=== PATIENT | male | born 1945 | race Caucasian/White ===

== ENCOUNTER → 2018-03-19 11:51 | Outpatient (CLI) | payer OTHER, SELFPAY ==
--- NOTE | 2018-03-19 | DI.ECHO.S_ITS ---
[facility] : : [address] : : : : [id number] : : : : Phone: [phone] Echocardiogram Report + + :Name: AKHIL HOLLINGSWORTH Study Date: 03/19/2018 Height: 68 in : :[facility] Weight: 169 lb : : Gender: Male BSA: 1.9 m2 : :: 1945 Age: 73 yrs BP: 136/78 mmHg: :Reason For Study: Cardiomyopathy, Hypertrophic : : Performed By: Batsheva Arnett : :Referring: SHRUTHI CHOE : + + Interpretation Summary Left ventricular size is at the upper limits of normal. Distal posterolateral hypokinesis appears to be new. Inferior wall not well seen. The ejection fraction is estimated to be 35-40%. Compared to the prior exam, the left ventricular function is reduced. Previois 45 +/- 5% The right ventricle is grossly normal size. Right ventricular systolic function is at the lower limits of normal. There is mild to moderate mitral regurgitation. There has been no significant change since the previous study. There is mild tricuspid regurgitation. Compared to the prior echo exam, there has been no change in TR severity. The right ventricular systolic pressure is estimated to be at least 55 mmHg based on an estimated right atrial pressure of 3 mm Hg. Compared to the prior echo exam, there has been no change in the severity of pulmonary hypertension. Procedure: A two-dimensional transthoracic echocardiogram with color flow and Doppler was performed. The study quality was technically adequate. Comparison is made with the echocardiogram of 03-02-15. The heart rate ranged between 75-77 bpm during the study. The patient was in normal sinus rhythm during the exam. Left Ventricle: Left ventricular wall thickness is mildly increased. Left ventricular size is at the upper limits of normal. There is no thrombus. The ejection fraction is estimated to be 35-40%. Compared to the prior exam, the left ventricular function is reduced. There is septal wall severe hypokinesis. Distal posterolateral hypokinesis appears to be new. Inferior wall not well seen. MV E/A: 0.77 Med Peak E' Ruslan: 2.5 cm/sec E/E' med: 22.7. Right Ventricle: The right ventricle is grossly normal size. Right ventricular systolic function is at the lower limits of normal. Atria: The left atrium is severely dilated. The left atrium has remained unchanged in size since the prior echo exam. The right atrium is mildly dilated. The interatrial septum is intact with no evidence for an atrial septal defect. Mitral Valve: There is mild mitral annular calcification. The mitral valve leaflets are slightly calcified. No systolic anterior motion of the mitral valve. There is mild to moderate mitral regurgitation. There has been no significant change since the previous study. Aortic Valve: The aortic valve is trileaflet. The aortic valve opens well. There is no aortic valve stenosis. No aortic regurgitation is present. Tricuspid Valve: The tricuspid valve is normal. There is mild tricuspid regurgitation. The right ventricular systolic pressure is estimated to be at least 55 mmHg based on an estimated right atrial pressure of 3 mm Hg. Compared to the prior echo exam, there has been no change in TR severity. Compared to the prior echo exam, there has been no change in the severity of pulmonary hypertension. Pulmonic Valve: The pulmonic valve is not well seen, but is grossly normal. There is trace pulmonic regurgitation. Great Vessels: The aortic root is normal size. The ascending aorta is mildly enlarged. The aortic arch is at the upper limits of normal in size. The IVC is of normal diameter and collapses greater than 50% with a sniff. This suggests a low right atrial pressure of 3 mm Hg. Pericardium/ Pleura There is no pericardial effusion. There is no pleural effusion. MMode/2D Measurements & Calculations LVIDd: 5.6 cm Ao root diam: 3.3 cm LVIDs: 4.9 cm Aortic Jxn: 2.9 cm FS: 12.6 % asc Aorta Diam: 3.8 cm EPSS: 0.62 cm Ao Arch Diam (Prox Trans): 3.0 cm IVSd: 1.2 cm LVPWd: 1.0 cm LV mena. diameter/BSA (cm/m^2): 2.9 LV sys. diameter/BSA (cm/m^2): 2.6 LA dimension: 5.4 cm RA long axis: 5.6 cm LA A2 area: 32.4 cm2 RA area: 21.5 cm2 LA A4 area: 38.3 cm2 RA vol: 70.5 ml LA length (vol): 7.1 cm RA : 37.1 ml/m2 LA vol: 148.0 ml IVC diam: 1.3 cm LA vol index: 77.8 ml/m2 RVDd major: 5.1 cm RVD1 (basal): 4.0 cm RVD2 (mid): 3.7 cm Doppler Measurements & Calculations Ao V2 max: 117.3 cm/sec MV E max ruslan: 57.3 cm/sec Ao V2 mean: 69.9 cm/sec MV A max ruslan: 74.9 cm/sec Ao max P.5 mmHg MV E/A: 0.77 Ao mean P.4 mmHg Med Peak E' Ruslan: 2.5 cm/sec Ao V2 VTI: 20.2 cm E/E' med: 22.7 Lat Peak E' Ruslan: 6.7 cm/sec E/E' lat: 8.5 E/e' average: 15.6 MV dec time: 0.25 sec MV P1/2t: 72.4 msec MR ERO: 0.07 cm2 TR max ruslan: 360.9 cm/sec MV P1/2t max ruslan: 57.9 cm/sec TR max P.1 mmHg MVA(P1/2t): 3.0 cm2 PA V2 max: 85.6 cm/sec PA V2 mean: 58.1 cm/sec PA mean P.6 mmHg PA Accel Time: 0.09 sec MR flow rate: 44.3 cm3/sec MR PISA radius: 0.43 cm Reading Physician:JOANA
--- NOTE | 2018-03-19 | DI.US.S_ITS ---
PROCEDURE: US CAROTID DOPPLER BI INDICATIONS: NEAR SYNCOPE TECHNIQUE: Color and pulse Doppler interrogation was performed of both carotid systems, with image documentation and velocity measurements. COMPARISON: [facility], , CAROTID ARTERY DOPPLER BILAT, 07/06/2012, 11:17. FINDINGS: Stenosis calculations are based on SRU (Society of Radiologists in Ultrasound) criteria. Right side: Brachial blood pressure: 148/85 mm Hg. Common carotid artery peak systolic velocity: 86 cm/sec. Internal carotid artery peak systolic velocity: 67 cm/sec. Internal carotid artery end diastolic velocity: 19 cm/sec. External carotid artery peak systolic velocity: 98 cm/sec. ICA/CCA peak systolic ratio: 1.3. Paul scale imaging description: Mild scattered plaque. Percent internal carotid artery stenosis: Less than 50%. Vertebral artery: Flow direction is antegrade. Left side: Brachial blood pressure: 147/80 mm Hg. Common carotid artery peak systolic velocity: 101 cm/sec. Internal carotid artery peak systolic velocity: 126 cm/sec. Internal carotid artery end diastolic velocity: 33 cm/sec. External carotid artery peak systolic velocity: 94 cm/sec. ICA/CCA peak systolic ratio: 1.2. Paul scale imaging description: Mild scattered plaque. Percent internal carotid artery stenosis: Less than 50%. Vertebral artery: Flow direction is antegrade. IMPRESSION: Stable less than 50% bilateral internal carotid artery stenosis. Dictated by: Amarjit Adkins [facility] Interpreted: Gnozalez Pérez MD on 03/19/2018 at 13:11 Approved by: Gonzalez Pérez M.D. on 03/20/2018 at 10:49
--- NOTE | 2018-03-19 14:43 | PM.TREADMILL ---
Cardiac Stress Test Report Referral & Results Date Patient Seen: 03/19/18 Requesting provider: Delisa Seaman Rest ECG: Left bundle branch block Procedure Note: After both written and verbal informed consent the patient had an IV started by the diagnostic imaging RN, and then was hooked up to the treadmill monitoring system. The Lexiscan material, and then the Cardiolite tracer, were administered sequentially. An additional 3 min was spent monitoring the patient while supine on the gurney.The patient had a normal response to all infused materials. Impression: Normal response to infuse materials as above Perfusion imaging to be reported separately Please note: Actual ECG tracings can be found in the PACS system.
--- NOTE | 2018-03-26 09:56 | DI.NM.S_ITS ---
DATE OF SERVICE: 03/19/2018 ORDERING PROVIDER: Delisa Seaman MD PROCEDURE: Pharmacologic stress and rest myocardial perfusion imaging with gating to assess ejection fraction and regional wall motion. 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 PHARMACOLOGIC STRESS: Pharmacologic stress was pursued because of the patient's incomplete left bundle branch block. Given this, 0.4 mg of regadenoson was infused with a normal hemodynamic response. The patient had no chest discomfort. The resting ECG shows a borderline LBBB with associated ST segment abnormalities. There were no appreciable changes with stress or arrhythmias seen. Per protocol, 26.6 mCi of technetium-99 Myoview was injected and the patient was imaged 15 minutes later using a gated SPECT acquisition protocol. The patient returned the following day and was reinjected with an additional 25.5 mCi of technetium-99 Myoview and was imaged 30 minutes later, again using a gated SPECT protocol. FINDINGS: 1. Raw data: There is fair myocardial tracer uptake. The lung/heart ratio is at the upper limits of normal at 0.41. The TID ratio is normal at 1.04. 2. Quantitated gated SPECT: Post-stress ejection fraction is estimated at 42% with significant hypokinesis in the mid and distal anterior wall, extending out to the apex. The distal inferior wall also appears to be mildly hypokinetic. The resting ejection fraction is 41% with an identical contraction pattern. Left ventricular volumes are mildly increased with a resting end-diastolic volume of 144 mL. 3. Myocardial perfusion imaging: There is near absent perfusion in the majority of the medial portion of the anterior wall and entire intraventricular septum, although sparing the very distal apex. There are no other perfusion abnormalities. This perfusion pattern is unchanged on the prone images. The resting images likewise show an identical perfusion pattern without any areas of improvement. CONCLUSION: 1. Abnormal myocardial perfusion study. 2. Moderately-large, severe fixed perfusion defect involving the medial portion of the anterior wall and the entirety of the intraventricular septum, consistent with transmural infarction but no significant myocardial ischemia. 3. Moderately reduced left ventricular systolic function with hypokinesis of the mid and distal anterior wall extending to the apex and the distal inferior wall with mildly increased left ventricular volumes. There is no change between stress compared to rest. The lung/heart ratio is at the upper limits of normal at 0.41. 4. No angina with pharmacologic stress. There were no arrhythmias but baseline ST segment abnormalities preclude any ST segment analysis. Ramón Merritt - JOHNY/richar/rosa m doc#: [id number]/job#: [id number] dd: 03/20/2018 12:34:00 dt: 03/20/2018 15:00:00 DICTATING MD/COPIES TO: Cristiano Santana MD ; Delisa Seaman MD ; Laura Shultz, DO COPIES MNE: CARLOS ENRIQUE MEREDITH ; [facility]
== END ==
PROVIDERS: Visit Provider Internal Medicine Cardiovascular Disease
DX: I42.2 Other hypertrophic cardiomyopathy (principal); I08.1 Rheumatic disorders of both mitral and tricuspid valves; I44.7 Left bundle-branch block, unspecified; I65.23 Occlusion and stenosis of bilateral carotid arteries; R94.39 Abnormal result of other cardiovascular function study; R55 Syncope and collapse; Z95.1 Presence of aortocoronary bypass graft
CPT/HCPCS: 78452; 93016; 93017; 93018; 93306; 93880; A9502; J2785

== ENCOUNTER 2018-03-20 13:24 | Emergency (ER) | payer MEDICARE, SELFPAY ==
[2018-03-20 13:46] VITALS: BP 149/76; PULSE 71; RESP 16; TEMP 36.7; O2SAT 100; BMI 23.6
--- NOTE | 2018-03-20 14:02 | DI.RAD.S_ITS ---
PROCEDURE: XR KNEE LT 3V INDICATIONS: left knee swelling, pain TECHNIQUE: 3 views of the knee were acquired. COMPARISON: None. FINDINGS: Bones: No fractures or dislocations. Chondrocalcinosis projects in the medial and lateral compartments. Mild narrowing of the medial joint space. Diffuse degenerative spurring. No suspicious bony lesions. Soft tissues: Moderate joint effusion. No suspicious soft tissue calcifications. Scattered vascular calcifications. IMPRESSION: Mild left knee degeneration. Moderate joint effusion. No fracture. If the patient's pain or other symptoms persist, consider further evaluation with MRI Chondrocalcinosis. Dictated by: Michel Apodaca M.D. on 03/20/2018 at 14:36 Approved by: Michel Apodaca M.D. on 03/20/2018 at 14:37
--- NOTE | 2018-03-20 14:04 | ED.EXTPRO ---
HPI - Extremity Problem General Chief complaint: Extremity Problem,Nontraumatic Stated complaint: Left Knee Pain Time Seen by Provider: 03/20/18 13:48 Source: patient and family Mode of arrival: ambulatory Limitations: no limitations History of Present Illness HPI Narrative: This is a 73-year-old male who comes to the emergency department with complaint of left knee swelling and pain. Patient states it has been 2 or 3 days of symptoms. He does not remember having any trauma, he has not walked any long distance he has not had any other new injuries. Patient has not had similar symptoms in the past of note he had a chemical stress test yesterday. Patient has not had any fevers, he is not having any warmth or erythema of the knee just swelling and pain. The swelling is localized just to the knee. He can bend and move it but weight-bearing is uncomfortable. He has not had similar symptoms in the past. He has had a history of gout but not in his knee. He has not had a joint replacement. He has never had bacteremia that he is aware of or septic joints in the past. He has not had any chest pain, no shortness of breath, no nausea or vomiting no GI or urinary symptoms. No other new medication changes. No numbness tingling or weakness in his extremities Related Data Home Medications Medication Instructions Recorded Confirmed CoQ-10 1 cap PO DAILY 03/20/18 03/20/18 aspirin 81 mg tablet,delayed 81 mg PO DAILY 03/20/18 03/20/18 release atenolol 50 mg tablet 50 mg PO DAILY 03/20/18 03/20/18 atorvastatin 40 mg tablet 40 mg PO QPM 03/20/18 03/20/18 losartan 25 mg tablet 25 mg PO DAILY 03/20/18 03/20/18 naproxen sodium [Aleve] 220 mg PO DAILY PRN 03/20/18 03/20/18 Previous Rx's Medication Instructions Recorded colchicine 0.6 mg PO DAILY #10 cap 03/20/18 hydrocodone-acetaminophen [Wales] 1 tab PO Q4-6H PRN #14 tab 03/20/18 Allergies Allergy/AdvReac Type Severity Reaction Status Date / Time No Known Drug Allergies Allergy Verified 03/20/18 13:46 Review of Systems Review of Systems All systems reviewed & are unremarkable except as noted in HPI and below Constitutional Denies chills and Denies fever(s) Cardiovascular Denies chest pain, Denies syncope, Denies dyspnea and Denies dyspnea on exertion Respiratory Denies chest congestion, Denies cough, Denies dyspnea and Denies dyspnea on exertion Gastrointestinal Gastrointestinal: Denies abdominal pain, Denies change in bowel habits, Denies diarrhea, Denies nausea and Denies vomiting Genitourinary Denies difficulty urinating Musculoskeletal Reports as per HPI, Reports arthralgias, Reports joint swelling, Denies limited range of motion, Denies muscle weakness, Denies numbness and Denies tingling Integumentary/Breasts Denies erythema, Denies rash, Denies unusual bruising and Denies other (pallor/cyanosis) Neurologic Denies syncope, Denies numbness and Denies tingling [facility] Medical History Dyslipidemia (Acute) Gout (Acute) Hypertension (Acute) Hypertrophic cardiomyopathy (Acute) Social History Smoking Status: Former smoker Exam Narrative Exam Narrative: GENERAL: Alert and oriented x three, well-nourished, well-appearing male in mild distress. HEENT: Head normocephalic, atraumatic, EOMI, pupils reactive, face symmetric, moist mucous membranes NECK: Supple, full range of motion CARDIOVASCULAR: Regular rate and rhythm without murmurs, rubs or gallops. RESPIRATORY: Breath sounds equal bilaterally, no wheezes rales or rhonchi. ABDOMEN: Soft, nontender. Normoactive bowel sounds all 4 quadrants. No guarding or rebound, rigidity, no mass EXTREMITIES: Normal range of motion, no clubbing. Patient has swelling of the left knee he has no tenderness to palpation. There is no warmth or erythema to the knee itself. Patient has full range of motion, no joint laxity with examination. No ballotable effusion. Patient has normal sensation throughout the legs, 5/5 muscle strength, 2+ pulses bilateral lower extremities.. Neurovascularly intact NEUROLOGICAL: Cranial nerves II through XII grossly intact. Moving all extremities SKIN: Warm, dry, no petechiae, no rashes or lesions. Initial Vital Signs Initial Vital Signs: Vital Signs Temperature 98.0 F 03/20/18 13:46 Pulse Rate 71 03/20/18 13:46 Respiratory Rate 16 03/20/18 13:46 Blood Pressure 149/76 H 03/20/18 13:46 Pulse Oximetry 100 03/20/18 13:46 Course Orders Ordered: ED Orders 03/20/18 14:02 XR knee LT 3V Stat 03/20/18 14:23 C-Reactive Protein Quant Stat Complete Blood Count AUTO DIFF Stat Erythrocyte Sedimentation Rate Stat Uric Acid Stat 03/20/18 16:49 Cell Count w Diff Body Fluid Stat Crystals Body Fluid Stat 03/20/18 17:00 Body Fluid Culture Stat Discontinued Medications Acetaminophen (Tylenol) 975 mg PO NOW ONE Stop: 03/20/18 14:02 Last Admin: 03/20/18 14:22 Dose: 975 mg Colchicine (Colcrys) 0.6 mg PO NOW ONE Stop: 03/20/18 18:21 Colchicine (Colcrys) 1.2 mg PO NOW ONE Stop: 03/20/18 18:21 Vital Signs - 8 hr 03/20/18 13:46 03/20/18 17:45 Temperature 98.0 F Pulse Rate 71 60 Respiratory Rate 16 17 Blood Pressure 149/76 H Blood Pressure [Left Arm] 113/63 Pulse Oximetry 100 98 MDM - Extremity (Nontraumatic) Lab Data Result diagrams: 03/20/18 14:23 Lab Results 03/20/18 03/20/18 03/20/18 Range/Units 14:23 14:23 16:49 WBC 10.8 (4.5-11.0) X10^3/uL RBC 4.35 L (4.5-5.9) X10^6/uL Hgb 14.8 (13.5-17.5) g/dL Hct 42.7 (41-53) % MCV 98.0 (80-100) fL MCH 33.9 (26-34) PG MCHC 34.6 (30-36) % RDW 13.2 (11.6-14.8) % Plt Count 218 (150-400) X10^3/uL Neut % (Auto) 77.2 H (50-75) % Lymph % (Auto) 10.0 L (25-40) % [place] % (Auto) 12.3 (3-14) % Eos % (Auto) 0.1 L (2-4) % Baso % (Auto) 0.4 (0-2) % Neut # (Auto) 8300 H (2577-7050) /uL ESR 48 H (0-15) MM/HR Uric Acid 6.1 (3.5-8.5) mg/dL C-Reactive Protein 16.0 H (<1.0) mg/dL Fluid Color Yellow Fluid Appearance Cloudy Fluid RBC 5100 /uL Fld Tot Nucleated Cell 13846 /uL Fluid Polynuclear WBCs 94 % Fluid Mononuclear WBCs 6 % Fluid Eosinophils 0 % Fluid Other Cells 0 % Body Fluid Clot No clots present Imaging Data knee xray: Radiologist's impression: [address] [address] XRay Report Signed Patient: Ramón Merritt MR#: [id number] : 1945 Acct:[id number] Age/Sex: 73 / M Date of Service: 03/20/18 Loc: ED Accession Number: [id number] Procedure: XR knee LT 3V Ordering Provider: Radha Viera D.O. PROCEDURE: XR KNEE LT 3V INDICATIONS: left knee swelling, pain TECHNIQUE: 3 views of the knee were acquired. COMPARISON: None. FINDINGS: Bones: No fractures or dislocations. Chondrocalcinosis projects in the medial and lateral compartments. Mild narrowing of the medial joint space. Diffuse degenerative spurring. No suspicious bony lesions. Soft tissues: Moderate joint effusion. No suspicious soft tissue calcifications. Scattered vascular calcifications. IMPRESSION: Mild left knee degeneration. Moderate joint effusion. No fracture. If the patient's pain or other symptoms persist, consider further evaluation with MRI Chondrocalcinosis. Dictated by: Michel Apodaca M.D. on 03/20/2018 at 14:36 Approved by: Michel Apodaca M.D. on 03/20/2018 at 14:37 [facility] Narrative Medical decision making narrative: Patient does have elevated C-reactive protein and ESR, his white count is normal. He has been afebrile. He has a history of gout but his uric acid is in normal range although this does not rule out gout. Patient does not have any clinical signs of septic arthritis other than swelling and some pain his x-ray shows moderate effusion but no fracture. Discharge Plan Departure Patient Disposition: Home Clinical Impression: Gout Instructions: DI for Gout Activity Restrictions/Additional Instructions: Follow-up with your primary care provider in the next 3-5 days for recheck. Call for an appointment. Take colchicine 1 tablet daily for symptoms. You may continue naproxen sodium for pain. You may also take Wales 1-2 tablets every 6 hr as needed for breakthrough pain. Return to the emergency department fevers, increasing swelling, redness, signs of infection, rapidly worsening pain, new numbness, tingling or other concerning signs or symptoms. Prescriptions: New colchicine 0.6 mg capsule 0.6 mg PO DAILY Qty: 10 RF: 0 hydrocodone-acetaminophen [Wales] 5-325 mg tablet 1 tab PO Q4-6H PRN (Reason: pain) Qty: 14 RF: 0 No Action atorvastatin 40 mg tablet 40 mg PO QPM RF: 0 aspirin [Adult Low Dose Aspirin] 81 mg tablet,delayed release (DR/EC) 81 mg PO DAILY RF: 0 losartan 25 mg tablet 25 mg PO DAILY RF: 0 atenolol 50 mg tablet 50 mg PO DAILY RF: 0 naproxen sodium [Aleve] 220 mg Tablet 220 mg PO DAILY PRN (Reason: pain) RF: 0 CoQ-10 1 cap PO DAILY RF: 0
[2018-03-20] MEDS: ACETAMINOPHEN 325 MG TABLET 975 MG PO (14:22)
[2018-03-20 14:31] LABS: Add Manual Diff / Slide Review NO; Basophils Percent Auto 0.4 % (0-2); Eosinophils Percent Auto 0.1 % (2-4); Hematocrit 42.7 % (41-53); Hemoglobin 14.8 g/dL (13.5-17.5); Mean Corpuscular HGB Conc 34.6 % (30-36); Mean Corpuscular Hemoglobin 33.9 PG (26-34); Monocytes Percent Auto 12.3 % (3-14); Neutrophils Absolute Auto 8300 /uL (1500-7000); Neutrophils Percent Auto 77.2 % (50-75); Platelet Count 218 X10^3/uL (150-400); Red Blood Cell Count 4.35 X10^6/uL (4.5-5.9); Red Cell Distribution Width 13.2 % (11.6-14.8); White Blood Cell Count 10.8 X10^3/uL (4.5-11.0)
[2018-03-20 14:44] LABS: Uric Acid 6.1 mg/dL (3.5-8.5)
[2018-03-20 15:03] LABS: Erythrocyte Sedimentation Rate 48 MM/HR (0-15)
[2018-03-20 17:15] LABS: Body Fluid Red Blood Cells 5100 /uL; Body Fluid Tot Nucleated Cells 40754 /uL
[2018-03-20 17:16] LABS: Body Fluid Appearance CLOUDY; Body Fluid Clotted? NO CLOTS PRESENT; Body Fluid Color YELLOW
[2018-03-20 17:45] VITALS: BP 113/63; PULSE 60; RESP 17; O2SAT 98
[2018-03-20 17:50] LABS: Eosinophils Body Fluid 0 %; Mononuclear WBC Body Fluid 6 %; Other Cells Body Fluid 0 %
[2018-03-20 17:53] LABS: Polynuclear WBC Body Fluid 94 %
[2018-03-20] MEDS: COLCHICINE 0.6 MG TABLET 1.2 MG PO (18:57)
[2018-03-20 19:34] VITALS: BP 124/62; PULSE 59; RESP 18; O2SAT 99
[2018-03-20 19:37] VITALS: BP 124/62; PULSE 59; RESP 18; O2SAT 99
== END 2018-03-20 19:37 | disposition home or self-care (01) ==
PROVIDERS: Emergency Provider Emergency Medicine
DX: M10.9 Gout, unspecified (principal)
CPT/HCPCS: 73562; 84550; 85025; 85651; 86140; 87070; 87075; 87205; 89051; 89060; 99282; 99284

== ENCOUNTER → 2018-07-03 11:25 | Outpatient (CLI) | payer OTHER, SELFPAY ==
[2018-07-03 13:02] LABS: Alanine Aminotransferase 35 IU/L (21-72); Albumin 4.7 g/dL (3.5-5.0); Albumin Globulin Ratio 2.2 (1.0-2.8); Alkaline Phosphatase 61 U/L (38-126); Aspartate Aminotransferase 29 IU/L (17-59); BUN Creatinine Ratio 13.8 (6-22); Bilirubin Total 1.1 mg/dL (0.2-1.3); Blood Urea Nitrogen 11 mg/dL (9-20); Calcium 9.7 mg/dL (8.4-10.2); Carbon Dioxide 24 mmol/L (22-32); Chloride 101 mmol/L (98-107); Cholesterol 132 mg/dL (140-199); Estimated Glomerular Filt Rate > 60.0 mL/min (>60); Globulin 2.1 g/dL (1.7-4.1); Glucose 77 mg/dL (80-110); HDL Cholesterol 79 mg/dL (40-60); HEMOLYSIS < 15 (0-50); LDL Cholesterol Calculated 36 mg/dL (<100); Potassium 4.6 mmol/L (3.4-5.1); Sodium 136 mmol/L (137-145); Total Protein 6.8 g/dL (6.3-8.2); Triglycerides 84 mg/dL (35-150)
== END ==
PROVIDERS: Visit Provider Internal Medicine Cardiovascular Disease
DX: E78.5 Hyperlipidemia, unspecified (principal); I10 Essential (primary) hypertension
CPT/HCPCS: 36415; 80053; 80061

== ENCOUNTER → 2018-07-27 11:21 | Outpatient (CLI) | payer OTHER, SELFPAY ==
[2018-07-27 12:27] LABS: Blood Urea Nitrogen 18 mg/dL (9-20); Calcium 9.8 mg/dL (8.4-10.2); Carbon Dioxide 21 mmol/L (22-32); Chloride 102 mmol/L (98-107); Estimated Glomerular Filt Rate > 60.0 mL/min (>60); Glucose 86 mg/dL (80-110); HEMOLYSIS < 15 (0-50); Potassium 4.6 mmol/L (3.4-5.1); Sodium 137 mmol/L (137-145)
== END ==
PROVIDERS: Visit Provider Internal Medicine Cardiovascular Disease
DX: I51.9 Heart disease, unspecified (principal)
CPT/HCPCS: 36415; 80048

== ENCOUNTER → 2019-02-18 11:36 | Outpatient (CLI) | payer MEDICARE, SELFPAY ==
--- NOTE | 2019-02-18 11:39 | DI.RAD.S_ITS ---
PROCEDURE: XR WRIST RT MIN 3V INDICATIONS: pain, swelling, r/o bony abnormality TECHNIQUE: 4 views of the wrist were acquired. COMPARISON: [facility], WRIST MINIMUM 3 VIEWS LEFT, 05/02/2016, 10:38. [facility], WRIST MINIMUM 3 VIEWS LEFT, 03/04/2013, 10:56. FINDINGS: Bones: No fractures or dislocations. No suspicious bony lesions. Scaphoid view: Moderate degeneration along the base of the first metacarpal, along the borders of the trapezium and to a lesser degree at the distal scaphoid are noted but no trauma. Soft tissues: No suspicious soft tissue calcifications. IMPRESSION: Degenerative changes without trauma. Dictated by: Cesar Mckeon M.D. on 02/18/2019 at 12:04 Approved by: Cesar Mckeon M.D. on 02/18/2019 at 12:18
== END ==
PROVIDERS: Visit Provider Physician Assistant
DX: M25.531 Pain in right wrist (principal); M25.431 Effusion, right wrist
CPT/HCPCS: 73110

== ENCOUNTER → 2019-09-10 12:57 | Outpatient (CLI) | payer OTHER, MEDICARE, SELFPAY ==
[2019-09-10 14:47] LABS: Alanine Aminotransferase 25 IU/L (<50); Albumin 4.9 g/dL (3.5-5.0); Albumin Globulin Ratio 1.9 (1.0-2.8); Alkaline Phosphatase 74 U/L (38-126); Aspartate Aminotransferase 33 IU/L (17-59); BUN Creatinine Ratio 17.9 (6-22); Bilirubin Total 1.4 mg/dL (0.2-1.3); Blood Urea Nitrogen 15 mg/dL (9-20); Calcium 9.8 mg/dL (8.4-10.2); Carbon Dioxide 23 mmol/L (22-32); Chloride 101 mmol/L (98-107); Cholesterol 130 mg/dL (140-199); Estimated Glomerular Filt Rate > 60.0 mL/min (>60); Globulin 2.6 g/dL (1.7-4.1); Glucose 91 mg/dL (80-110); HDL Cholesterol 68 mg/dL (40-60); HEMOLYSIS < 15 (0-50); LDL Cholesterol Calculated 50 mg/dL (<100); Potassium 4.3 mmol/L (3.4-5.1); Sodium 136 mmol/L (137-145); Total Protein 7.5 g/dL (6.3-8.2); Triglycerides 60 mg/dL (35-150)
== END ==
PROVIDERS: Referring Provider Internal Medicine Cardiovascular Disease; Visit Provider Internal Medicine Cardiovascular Disease
DX: E78.5 Hyperlipidemia, unspecified (principal)
CPT/HCPCS: 36415; 80053; 80061

== ENCOUNTER → 2019-10-09 08:26 | Outpatient (CLI) | payer MEDICARE, SELFPAY ==
[2019-10-10 18:29] LABS: COVID19 Sendout Not Detected (Not Detect)
== END ==
PROVIDERS: Visit Provider Physician Assistant
DX: Z01.812 Encounter for preprocedural laboratory examination (principal)
CPT/HCPCS: 87635

== ENCOUNTER 2019-10-12 10:13 | Day surgery (SDC) | payer MEDICARE, SELFPAY ==
[2019-10-12] MEDS: PROPARACAINE 0.5% OPHTH SOL 2 DROPS EYE-OP (10:39)
[2019-10-12] MEDS: CATARACT EYE COMPOUND (10 DROPS/SYRINGE) 3 DROPS EYE-OP (10:42)
[2019-10-12 10:44] VITALS: BMI 24.3
[2019-10-12 10:51] VITALS: BP 172/91; PULSE 75; RESP 16; TEMP 36.5; O2SAT 99
--- NOTE | 2019-10-12 11:35 | PM.PREOP ---
Pre-operative Note Interval Note History & Physical reviewed/Exam performed by Physician: Yes Changes to H&P: No
--- NOTE | 2019-10-12 11:35 | PM.OP.1 ---
Operative Date/Time/Diagnoses Pre-op diagnosis: Nuclear cataract right eye Procedure & Clinicians Procedure: Cataract Surgery Same procedure as scheduled: Yes Surgeon: Hari Triplett Anesthesia Type: MAC +/- and Sedation Operative Notes Procedure in detail: Patient brought to the operating suite. Tetracaine drops placed in the right eye. Marking instrument was used to salud the vertical and horizontal meridians. Patient was prepped and draped in sterile manner. Wire lid speculum was placed in the eye. Marking instrument was used to salud the 25 degree meridian. Betadine drops were placed on the eye. This was irrigated. Lidocaine jelly was placed on the eye. A paracentesis port was created with a side-port blade. 0.1 mL 1% preservative free lidocaine was injected into the anterior chamber. The anterior chamber was deepened with viscoelastic. 2.6 mm keratome was used to create a temporal clear corneal incision. Cystotome and Utrata forceps were used to create continuous tear capsulorrhexis. Balanced salt solution was used to hydro dissect the nucleus. The phacoemulsification handpiece was inserted and the nucleus was removed using the stop and chop technique. The irrigation aspiration handpiece was inserted and the remaining cortex was removed. Anterior chamber was deepened with viscoelastic. An Kaplan [id number] intraocular lens with a power of 22.5 was injected into the capsular bag. Irrigation aspiration handpiece was inserted and the remaining viscoelastic was removed. The lens was rotated to the 25 degree meridian. Incision was hydrated with balanced salt solution and found to be leak free with pressure with Weck-Cristina sponges. 0.1 mL Vigamox injected anterior chamber. 0.3 mL Kenalog 10 mg was injected subconjunctivally. Lid speculum was removed. The patient left the operating room in excellent condition. Complications: none Post-operative Condition: stable Disposition: same day surgery
[2019-10-12] MEDS: LIDOCAINE JELLY 2% 5 ML 1 APPLIC TOP (12:05)
[2019-10-12] MEDS: PHENYLEPHRINE/LIDOCAINE VIAL (OR) 0.2 ML EYE-OP (12:05)
[2019-10-12] MEDS: CHONDROIDTIN/SOD HYALURONATE 1.05 ML SYRINGE INTRAOCULA (12:05)
[2019-10-12] MEDS: MOXIFLOXACIN INJ 5 MG/ML VIAL EYE-OP (12:05)
[2019-10-12] MEDS: TRIAMCINOLONE 50 MG/5 ML VIAL INJ (12:06)
[2019-10-12] MEDS: TETRACAINE 0.5% OPHTH DROPS 4 ML 2 DROPS EYE-OP (12:06)
[2019-10-12] MEDS: BALANCED SALT IRRIG SOLN NO.2 500 ML, EPINEPHrine 1 MG IRR (12:06)
[2019-10-12 13:48] VITALS: BP 142/84; PULSE 59; RESP 16; TEMP 36.5; O2SAT 96
== END 2019-10-12 12:30 | disposition home or self-care (01) ==
PROVIDERS: PCP Student in an Organized Health Care Education/Training Program; Referring Provider Ophthalmology; Visit Provider Ophthalmology
PROC: (CPT 66984; principal; 2019-10-12 12:15)
DX: H25.11 Age-related nuclear cataract, right eye (principal); Z95.1 Presence of aortocoronary bypass graft; I25.10 Atherosclerotic heart disease of native coronary artery without angina pectoris; I10 Essential (primary) hypertension
CPT/HCPCS: 66984; J0171; J2250; J3301; V2787

== ENCOUNTER → 2019-10-23 11:47 | Outpatient (CLI) | payer MEDICARE, SELFPAY ==
[2019-10-25 06:32] LABS: COVID19 Sendout Not Detected (Not Detect)
== END ==
PROVIDERS: PCP Student in an Organized Health Care Education/Training Program; Visit Provider Physician Assistant
DX: Z01.812 Encounter for preprocedural laboratory examination (principal)
CPT/HCPCS: 87635

== ENCOUNTER 2019-10-26 08:43 | Day surgery (SDC) | payer MEDICARE, SELFPAY ==
[2019-10-26] MEDS: PROPARACAINE 0.5% OPHTH SOL 2 DROPS EYE-OP (10:10)
[2019-10-26] MEDS: CATARACT EYE COMPOUND (10 DROPS/SYRINGE) 3 DROPS EYE-OP (10:15)
[2019-10-26 10:20] VITALS: BP 181/94; PULSE 73; RESP 20; TEMP 36.9; O2SAT 99; BMI 23.6
--- NOTE | 2019-10-26 10:42 | PM.PREOP ---
Pre-operative Note Interval Note History & Physical reviewed/Exam performed by Physician: Yes Changes to H&P: No
--- NOTE | 2019-10-26 10:42 | PM.OP.1 ---
Operative Date/Time/Diagnoses Pre-op diagnosis: Nuclear Cataract Left eye Post-op diagnosis: same Procedure & Clinicians Same procedure as scheduled: Yes Surgeon: Hari Triplett Anesthesia Type: MAC +/- and Sedation Operative Notes Procedure in detail: Patient brought to the operating suite. Tetracaine drops placed in the left eye. Marking instrument was used to salud vertical and horizontal meridians. Patient was prepped and draped in sterile manner. Wire lid speculum was placed in the eye. Marking instrument was used to salud 130 degree meridian. Betadine drops were placed on the eye. This was irrigated. Lidocaine jelly was placed on the eye. A paracentesis port was created with a side-port blade. 0.1 mL 1% preservative free lidocaine was injected into the anterior chamber. The anterior chamber was deepened with viscoelastic. 2.6 mm keratome was used to create a temporal clear corneal incision. Cystotome and Utrata forceps were used to create continuous tear capsulorrhexis. Balanced salt solution was used to hydro dissect the nucleus. The phacoemulsification handpiece was inserted and the nucleus was removed using the stop and chop technique. The irrigation aspiration handpiece was inserted and the remaining cortex was removed. Anterior chamber was deepened with viscoelastic. An Kaplan ICS217 intraocular lens with a power of 23.0 was injected into the capsular bag. Irrigation aspiration handpiece was inserted and the remaining viscoelastic was removed. The lens was rotated to the 130 degree meridian. Incision was hydrated with balanced salt solution and found to be leak free with pressure with Weck-Cristina sponges. 0.1 mL Vigamox injected anterior chamber. 0.3 mL Kenalog 10 mg was injected subconjunctivally. Lid speculum was removed. The patient left the operating room in excellent condition. Complications: none Post-operative Condition: stable Disposition: same day surgery
[2019-10-26] MEDS: MOXIFLOXACIN INJ 5 MG/ML VIAL EYE-OP (11:01)
[2019-10-26] MEDS: PHENYLEPHRINE/LIDOCAINE VIAL (OR) 0.2 ML EYE-OP (11:01)
[2019-10-26] MEDS: CHONDROIDTIN/SOD HYALURONATE 1.05 ML SYRINGE INTRAOCULA (11:02)
[2019-10-26] MEDS: TRIAMCINOLONE 50 MG/5 ML VIAL INJ (11:02)
[2019-10-26] MEDS: TETRACAINE 0.5% OPHTH DROPS 4 ML 2 DROPS EYE-OP (11:02)
[2019-10-26] MEDS: LIDOCAINE JELLY 2% 5 ML 1 APPLIC TOP (11:02)
[2019-10-26] MEDS: BALANCED SALT IRRIG SOLN NO.2 500 ML, EPINEPHrine 1 MG IRR (11:03)
[2019-10-26 11:16] VITALS: BP 159/81; PULSE 65; RESP 16; TEMP 36.4; O2SAT 98
== END 2019-10-26 11:27 | disposition home or self-care (01) ==
PROVIDERS: PCP Student in an Organized Health Care Education/Training Program; Referring Provider Ophthalmology; Visit Provider Ophthalmology
PROC: (CPT 66984; principal; 2019-10-26 10:45)
DX: H25.12 Age-related nuclear cataract, left eye (principal); I25.10 Atherosclerotic heart disease of native coronary artery without angina pectoris; I10 Essential (primary) hypertension
CPT/HCPCS: 66984; J0171; J2250; J3301; V2787

== ENCOUNTER → 2020-09-11 09:16 | Outpatient (CLI) | payer OTHER, SELFPAY ==
[2020-09-11 11:18] LABS: Alanine Aminotransferase 23 IU/L (<50); Albumin 4.3 g/dL (3.5-5.0); Albumin Globulin Ratio 1.9 (1.0-2.8); Alkaline Phosphatase 62 U/L (38-126); Aspartate Aminotransferase 30 IU/L (17-59); BUN Creatinine Ratio 14.1 (6-22); Bilirubin Total 1.2 mg/dL (0.2-1.3); Blood Urea Nitrogen 11 mg/dL (9-20); Calcium 9.7 mg/dL (8.4-10.2); Carbon Dioxide 25 mmol/L (22-32); Chloride 102 mmol/L (98-107); Cholesterol 142 mg/dL (140-199); Estimated Glomerular Filt Rate > 60.0 mL/min (>60); Globulin 2.3 g/dL (1.7-4.1); Glucose 94 mg/dL (80-110); HDL Cholesterol 66 mg/dL (40-60); HEMOLYSIS < 15 (0-50); LDL Cholesterol Calculated 61 mg/dL (<100); Potassium 4.1 mmol/L (3.4-5.1); Sodium 137 mmol/L (137-145); Total Protein 6.6 g/dL (6.3-8.2); Triglycerides 77 mg/dL (35-150)
== END ==
PROVIDERS: PCP Student in an Organized Health Care Education/Training Program; Referring Provider Internal Medicine Cardiovascular Disease; Visit Provider Internal Medicine Cardiovascular Disease
DX: E78.5 Hyperlipidemia, unspecified (principal)
CPT/HCPCS: 36415; 80053; 80061

== ENCOUNTER → 2021-09-14 10:00 | Outpatient (CLI) | payer OTHER, SELFPAY ==
[2021-09-15 01:12] LABS: Cholesterol 133 mg/dL (140-199); HDL Cholesterol 65 mg/dL (40-60); LDL Cholesterol Calculated 56 mg/dL (<100); Triglycerides 59 mg/dL (35-150)
== END ==
PROVIDERS: PCP Student in an Organized Health Care Education/Training Program; Referring Provider Internal Medicine Cardiovascular Disease; Visit Provider Internal Medicine Cardiovascular Disease
DX: I10 Essential (primary) hypertension (principal)
CPT/HCPCS: 36415; 80061

== ENCOUNTER → 2022-04-04 09:31 | Outpatient (CLI) | payer MEDICARE, SELFPAY ==
[2022-04-04 12:34] LABS: BUN Creatinine Ratio 14.4 (6-22); Blood Urea Nitrogen 13 mg/dL (9-20); Calcium 8.9 mg/dL (8.4-10.2); Carbon Dioxide 23 mmol/L (22-32); Chloride 103 mmol/L (98-107); Estimated Glomerular Filt Rate > 60 mL/min (>60); Glucose 103 mg/dL (80-110); HEMOLYSIS < 15 (0-50); Potassium 4.2 mmol/L (3.4-5.1); Sodium 139 mmol/L (137-145)
== END ==
PROVIDERS: PCP Student in an Organized Health Care Education/Training Program; Referring Provider Internal Medicine Cardiovascular Disease; Visit Provider Internal Medicine Cardiovascular Disease
DX: I42.2 Other hypertrophic cardiomyopathy (principal); I10 Essential (primary) hypertension
CPT/HCPCS: 36415; 80048

== ENCOUNTER → 2022-07-15 10:37 | Outpatient (CLI) | payer MEDICARE, SELFPAY ==
[2022-07-15 11:41] LABS: Add Manual Diff / Slide Review NO; Basophils Absolute Auto 100 /uL (0-100); Basophils Percent Auto 0.7 % (0-2); Eosinophils Absolute Auto 0 /uL (0-450); Eosinophils Percent Auto 0.5 % (2-4); Hematocrit 45.8 % (41-53); Hemoglobin 15.1 g/dL (13.5-17.5); Lymphocytes Absolute Auto 1300 /uL (1100-4500); Lymphocytes Percent Auto 16.9 % (25-40); Mean Corpuscular HGB Conc 33.1 % (30-36); Mean Corpuscular Hemoglobin 33.3 PG (26-34); Mean Corpuscular Volume 100.6 fL (80-100); Monocytes Absolute Auto 600 /uL (0-900); Monocytes Percent Auto 7.8 % (3-14); Neutrophils Absolute Auto 5600 /uL (1500-7000); Neutrophils Percent Auto 74.1 % (50-75); Platelet Count 288 X10^3/uL (150-400); Red Blood Cell Count 4.55 X10^6/uL (4.5-5.9); Red Cell Distribution Width 14.4 % (11.6-14.8); White Blood Cell Count 7.5 X10^3/uL (4.5-11.0)
[2022-07-15 12:08] LABS: Alanine Aminotransferase 72 IU/L (<50); Albumin 3.9 g/dL (3.5-5.0); Albumin Globulin Ratio 1.6 (1.0-2.8); Alkaline Phosphatase 112 U/L (38-126); Aspartate Aminotransferase 45 IU/L (17-59); BUN Creatinine Ratio 19.4 (6-22); Bilirubin Total 1.7 mg/dL (0.2-1.3); Blood Urea Nitrogen 18 mg/dL (9-20); Calcium 9.2 mg/dL (8.4-10.2); Carbon Dioxide 19 mmol/L (22-32); Chloride 105 mmol/L (98-107); Cholesterol 100 mg/dL (140-199); Estimated Glomerular Filt Rate > 60 mL/min (>60); Globulin 2.4 g/dL (1.7-4.1); Glucose 112 mg/dL (80-110); HDL Cholesterol 40 mg/dL (40-60); HEMOLYSIS 17 (0-50); LDL Cholesterol Calculated 44 mg/dL (<100); Magnesium 1.6 mg/dL (1.6-2.3); Potassium 4.6 mmol/L (3.4-5.1); Sodium 135 mmol/L (137-145); Total Protein 6.3 g/dL (6.3-8.2); Triglycerides 82 mg/dL (35-150)
== END ==
PROVIDERS: PCP Student in an Organized Health Care Education/Training Program; Referring Provider Internal Medicine Cardiovascular Disease; Visit Provider Internal Medicine Cardiovascular Disease
DX: I48.92 Unspecified atrial flutter (principal); I10 Essential (primary) hypertension; E78.5 Hyperlipidemia, unspecified
CPT/HCPCS: 36415; 80053; 80061; 83735; 84443; 85025

== ENCOUNTER → 2022-07-30 13:05 | Outpatient (CLI) | payer MEDICARE, SELFPAY ==
[2022-07-30 14:22] LABS: Alanine Aminotransferase 26 IU/L (<50); Albumin 4.2 g/dL (3.5-5.0); Albumin Globulin Ratio 1.6 (1.0-2.8); Alkaline Phosphatase 109 U/L (38-126); Aspartate Aminotransferase 25 IU/L (17-59); BUN Creatinine Ratio 15.5 (6-22); Bilirubin Total 1.7 mg/dL (0.2-1.3); Blood Urea Nitrogen 16 mg/dL (9-20); Calcium 9.4 mg/dL (8.4-10.2); Carbon Dioxide 27 mmol/L (22-32); Chloride 99 mmol/L (98-107); Estimated Glomerular Filt Rate > 60 mL/min (>60); Globulin 2.7 g/dL (1.7-4.1); Glucose 91 mg/dL (80-110); HEMOLYSIS < 15 (0-50); Potassium 3.8 mmol/L (3.4-5.1); Sodium 136 mmol/L (137-145); Total Protein 6.9 g/dL (6.3-8.2)
[2022-07-30 15:33] LABS: Free T4, Direct Thyroxine 1.04 ng/dL (0.78-2.19)
[2022-07-30 15:47] LABS: Thyroid Stimulating Hormone 4.52 uIU/mL (0.47-4.68)
== END ==
PROVIDERS: PCP Student in an Organized Health Care Education/Training Program; Referring Provider Nurse Practitioner; Visit Provider Nurse Practitioner
DX: R00.0 Tachycardia, unspecified (principal); E11.9 Type 2 diabetes mellitus without complications; I42.9 Cardiomyopathy, unspecified; I48.92 Unspecified atrial flutter; I10 Essential (primary) hypertension
CPT/HCPCS: 36415; 80053; 84439; 84443

== ENCOUNTER → 2022-08-29 13:51 | Outpatient (CLI) | payer MEDICARE, SELFPAY ==
[2022-08-29 15:29] LABS: Blood Urea Nitrogen 18 mg/dL (9-20); Calcium 9.8 mg/dL (8.4-10.2); Carbon Dioxide 23 mmol/L (22-32); Chloride 103 mmol/L (98-107); Estimated Glomerular Filt Rate > 60 mL/min (>60); Glucose 87 mg/dL (80-110); HEMOLYSIS < 15 (0-50); Potassium 4.5 mmol/L (3.4-5.1); Sodium 137 mmol/L (137-145)
--- NOTE | 2022-09-04 11:35 | PM.PFT.1 ---
Pulmonary Function Test Referral & Results Date Patient Seen: 08/29/22 Results: The spirometry demonstrates an FVC of 2.74 L which is 67% of predicted. The FEV1 was measured at 2.18 L which is 75% of predicted. The FEV1/FVC ratio was 80 which is 110% of predicted. Following the administration of bronchodilator there was a 10% improvement in FEV1 and a 37% improvement in FEF 25-75%. Lung volumes show an SVC of 3.02 L which is 68% of predicted. The diffusing capacity was measured at 16.54 which is 51% of predicted. No hemoglobin value was provided, so no correction for potential anemia could be made, if appropriate. The maximum voluntary ventilation was reduced Interpretation: This study demonstrates probably mild obstructive lung disease based on reduction FEV1 although FEV1/FVC ratio is preserved there is evidence of benefit following bronchodilator as above particularly in small airway flow There is a minimal reduction in lung volumes suggesting the presence of mild restrictive lung disease which may explain some of the abnormality in the FEV1 above There is a more moderate reduction in diffusing capacity suggesting disease at the capillary alveolar level Clinical correlation suggested
== END ==
PROVIDERS: PCP Student in an Organized Health Care Education/Training Program; Referring Provider Internal Medicine Cardiovascular Disease; Visit Provider Internal Medicine Cardiovascular Disease
DX: Z79.899 Other long term (current) drug therapy (principal); I50.22 Chronic systolic (congestive) heart failure; Z87.891 Personal history of nicotine dependence; J98.8 Other specified respiratory disorders
CPT/HCPCS: 36415; 80048; 94060; 94726; 94729

== ENCOUNTER → 2022-09-04 06:49 | Outpatient (CLI) | payer MEDICARE, SELFPAY ==
--- NOTE | 2022-09-04 07:02 | DI.ECHO.S_ITS ---
[place] +---------+ [facility] +---------+ : : [address] : : : : [id number] : : : : Phone: [phone]+ Echocardiogram Report + + :Name: AKHIL HOLLINGSWORTH Study Date: 09/04/2022 Height: 70 in : :[facility] ReadingLocation: Weight: 160 lb : : Gender: Male BSA: 1.9 m2 : :: 1945 Age: 77 yrs BP: 133/86 mmHg: :Reason For Study: SYSTOLIC HEART FAILURE : :Ordering Physician: DAIJA, : :SHRUTHI Performed By: Kelsi Reece : :Referring: SHRUTHI CHOE : + + Interpretation Summary The patient was in sinus bradycardia with heart rates between 47-51 bpm during the exam. The patient had a bundle branch block rhythm during the exam. The left ventricle is mildly dilated. The ejection fraction is estimated to be 20-25%. Except basal to mid inferior lateral wall as well as basal to mid anterolateral wall, rest of the LV segments severely hypokinetic to akinetic. Septum and apex almost akinetic. Patient had KISHA on July 18, 2022 in the setting of A-fib at that time LVEF 10 to 15% with severe global hypokinesis. The right ventricle is normal size. Right ventricular systolic function is moderately reduced. There is moderate to severe mitral regurgitation. Previously moderate MR. No obvious mitral valve prolapse or flail leaflet. Tented mitral leaflets. Mostly central jet. There is moderate tricuspid regurgitation. The right ventricular systolic pressure is estimated to be at least 70 mmHg based on an estimated right atrial pressure of 8 mm Hg. Compared to the prior echo exam, there has been an increase in the severity of pulmonary hypertension. Procedure: Images were not obtained from all of the standard acoustic windows due to the limited scope of the study. The study quality was technically good. Comparison is made with the echocardiogram of 03/19/2018. The patient was in sinus bradycardia with heart rates between 47-51 bpm during the exam. The patient had a bundle branch block rhythm during the exam. Left Ventricle: The left ventricle is mildly dilated. The estimated left ventricular end diastolic volume is 118 ml. No obvious asymmetrical significant septal hypertrophy seen. There is no thrombus. Trabeculae near apex are visualized. No thrombus is observed. A false chord is noted (normal variant). The ejection fraction is estimated to be 20-25%. Except basal to mid inferior lateral wall as well as basal to mid anterolateral wall, rest of the LV segments severely hypokinetic to akinetic. Septum and apex almost akinetic. Patient had KISHA on July 18, 2022 in the setting of A-fib at that time LVEF 10 to 15% with severe global hypokinesis. Right Ventricle: The right ventricle is normal size. Right ventricular systolic function is moderately reduced. Atria: The left atrium is severely dilated. There has been no significant change since the previous study. The right atrium is moderately dilated. Mitral Valve: The mitral valve leaflets are slightly calcified. There is mild mitral annular calcification. The mitral valve leaflets appear mildly thickened, but open well. There is moderate to severe mitral regurgitation. Tricuspid Valve: The tricuspid valve leaflets are thin and pliable. There is moderate tricuspid regurgitation. The right ventricular systolic pressure is estimated to be at least 70 mmHg based on an estimated right atrial pressure of 8 mm Hg. Compared to the prior echo exam, there has been an increase in the severity of pulmonary hypertension. Great Vessels: The IVC is of normal diameter and collapses less than 50% with a sniff. This suggests a right atrial pressure of 8 mm Hg. Pericardium/ Pleura There is no pericardial effusion. There is no pleural effusion. MMode/2D Measurements & Calculations LVIDd: 6.0 cm LA A2 area: 26.7 cm2 LVIDs: 5.1 cm LA A4 area: 30.5 cm2 FS: 15.6 % LA length (vol): 7.0 cm EPSS: 0.73 cm LA vol: 99.4 ml IVSd: 0.91 cm LA vol index: 52.3 ml/m2 LVPWd: 0.84 cm LV mena. diameter/BSA (cm/m^2): 3.2 LV sys. diameter/BSA (cm/m^2): 2.7 RA long axis: 5.7 cm RVD1 (basal): 4.0 cm RA area: 23.4 cm2 RVD2 (mid): 3.1 cm RA vol: 81.0 ml TAPSE: 1.6 cm RA : 42.7 ml/m2 IVC diam: 2.0 cm Doppler Measurements & Calculations MR ERO: 0.45 cm2 TR max rebecca: 394.1 cm/sec TR max P.1 mmHg MR PISA: 5.9 cm2 MR flow rate: 228.9 cm3/sec MR PISA radius: 0.97 cm Reading Physician:11:21 AM
== END ==
PROVIDERS: Referring Provider Internal Medicine Cardiovascular Disease; Visit Provider Internal Medicine Cardiovascular Disease
DX: I50.22 Chronic systolic (congestive) heart failure (principal); I27.20 Pulmonary hypertension, unspecified; R00.1 Bradycardia, unspecified; I08.1 Rheumatic disorders of both mitral and tricuspid valves; I43 Cardiomyopathy in diseases classified elsewhere
CPT/HCPCS: 93307

== ENCOUNTER → 2022-09-23 09:05 | Outpatient (CLI) | payer MEDICARE, SELFPAY ==
[2022-09-23 12:12] LABS: Alanine Aminotransferase 29 IU/L (<50); Albumin 4.1 g/dL (3.5-5.0); Albumin Globulin Ratio 1.8 (1.0-2.8); Alkaline Phosphatase 74 U/L (38-126); Aspartate Aminotransferase 29 IU/L (17-59); BUN Creatinine Ratio 15.7 (6-22); Bilirubin Total 1.8 mg/dL (0.2-1.3); Blood Urea Nitrogen 17 mg/dL (9-20); Calcium 9.4 mg/dL (8.4-10.2); Carbon Dioxide 21 mmol/L (22-32); Chloride 100 mmol/L (98-107); Estimated Glomerular Filt Rate > 60 mL/min (>60); Globulin 2.3 g/dL (1.7-4.1); Glucose 94 mg/dL (80-110); HEMOLYSIS 37 (0-50); Potassium 5.1 mmol/L (3.4-5.1); Sodium 132 mmol/L (137-145); Total Protein 6.4 g/dL (6.3-8.2)
== END ==
PROVIDERS: Referring Provider Internal Medicine Cardiovascular Disease; Visit Provider Internal Medicine Cardiovascular Disease
DX: Z79.899 Other long term (current) drug therapy (principal)
CPT/HCPCS: 36415; 80053

== ENCOUNTER → 2022-10-11 10:06 | Outpatient (CLI) | payer MEDICARE, SELFPAY ==
[2022-10-11 10:53] LABS: BUN Creatinine Ratio 16.8 (6-22); Blood Urea Nitrogen 19 mg/dL (9-20); Calcium 9.6 mg/dL (8.4-10.2); Carbon Dioxide 27 mmol/L (22-32); Chloride 100 mmol/L (98-107); Estimated Glomerular Filt Rate > 60 mL/min (>60); Glucose 100 mg/dL (80-110); HEMOLYSIS 23 (0-50); Potassium 4.3 mmol/L (3.4-5.1); Sodium 136 mmol/L (137-145)
== END ==
PROVIDERS: Referring Provider Internal Medicine Cardiovascular Disease; Visit Provider Internal Medicine Cardiovascular Disease
DX: R00.0 Tachycardia, unspecified (principal); I43 Cardiomyopathy in diseases classified elsewhere
CPT/HCPCS: 36415; 80048

== ENCOUNTER 2022-12-13 07:20 | Emergency (ER) | payer MEDICARE, SELFPAY ==
[2022-12-13 07:22] VITALS: BP 167/77; PULSE 61; RESP 16; TEMP 36.4; O2SAT 97; BMI 21.1
[2022-12-13] MEDS: OXYMETAZOLINE NASAL SPRAY 30 ML 2 SPRAYS NASAL (07:30)
--- NOTE | 2022-12-13 07:37 | ED.GENADULT ---
HPI - General Adult General Chief complaint: Nasal Problem Stated complaint: bloody nose that wont stop Time Seen by Provider: 12/13/22 07:24 Source: patient Mode of arrival: Ambulatory History of Present Illness HPI narrative: 77-year-old male is on Eliquis for atrial fibrillation here for evaluation of a right-sided nosebleed. He has been having issues with bleeding since he is started the Eliquis. His etcher apprentice photoengraving actually dropped him to half a dose. He still occasionally gets nosebleeds and it seems to be on the right side. The current episode started a couple hours ago. He has tried compression at home and also packing his nose with tissues. He reports no GI bleeding. Related Data Home Medications Medication Instructions Recorded Confirmed aspirin 81 mg tablet,delayed 81 mg PO DAILY 03/20/18 10/26/19 release (Adult Low Dose Aspirin) atorvastatin 40 mg tablet 40 mg PO QPM 03/20/18 10/26/19 coenzyme Q10 30 mg capsule (CoQ-10) 30 mg PO DAILY 03/20/18 10/26/19 metoprolol succinate 50 mg 50 mg PO DAILY 04/24/18 10/26/19 tablet,extended release 24 hr losartan 25 mg tablet 25 mg PO BID 07/28/18 10/26/19 acetaminophen 500 mg tablet 1,000 mg PO DAILY 10/12/19 10/26/19 Allergies Allergy/AdvReac Type Severity Reaction Status Date / Time No Known Drug Allergies Allergy Verified 10/23/19 11:45 Review of Systems Constitutional Constitutional: Reports system reviewed and no additional complaints, except as documented ENT Ears, Nose, Mouth, and Throat: Reports system reviewed and no additional complaints, except as documented Integumentary/Breasts Skin/Breast: Reports system reviewed and no additional complaints, except as documented Hematologic/Lymphatic On Anticoagulants: Yes Patient History Medical History Chicken pox (~1945) Chronic back pain Dyslipidemia Gout (~1999) Hearing loss (~1999) Hemorrhoid Hypertension (~1998) Hypertrophic cardiomyopathy (~1998) Measles (~1945) Mumps (~1945) Osteoarthritis (~1999) Osteoporosis (~1999) Pulmonary hypertension (~1998) Shoulder pain (~1999) Vision disorder Surgical History (Updated 09/21/20 @ 10:00 by Richy Rea MD) Anesthesia History of single vessel coronary artery bypass (~01/2005) Family History (Updated 08/17/18 @ 19:09 by Jamilah Pisano) Father Parkinson's disease Grandmother Cancer Grandmother History of heart disease Social History household members: spouse Smoking Status: Former smoker Smoking Status: Former smoker alcohol intake frequency: 0-2 drinks per day Substance Use Type: does not use Exam Initial Vital Signs Initial Vital Signs: Vital Signs Temperature 97.6 F 12/13/22 07:22 Pulse Rate 61 12/13/22 07:22 Respiratory Rate 16 12/13/22 07:22 Blood Pressure 167/77 H 12/13/22 07:22 Pulse Oximetry 97 12/13/22 07:22 Oxygen Delivery Method Room Air 12/13/22 07:22 Const General: cooperative and comfortable HENMT Nose: No epistaxis and other (Friable tissue right anterior nasal septum) Mouth: oral mucosae normal Skin General: no rashes or lesions noted Neuro General: patient alert, patient awake and moves all extremities Course Orders Ordered: Discontinued Medications Oxymetazoline HCl (Oxymetazoline Nasal Finger 30 Ml) 2 sprays NASAL NOW ONE Stop: 12/13/22 07:28 Last Admin: 12/13/22 07:30 Dose: 2 sprays Documented By: BON Vital Signs Vital signs: Vital Signs - 8 hr 12/13/22 07:22 Temperature 97.6 F Pulse Rate 61 Respiratory Rate 16 Blood Pressure 167/77 H Pulse Oximetry 97 Oxygen Delivery Method Room Air Medical Decision Making [facility] Narrative Medical decision making narrative: Patient is on Eliquis. The bleeding is from his right nares. It was only oozing upon arrival. We used Afrin and a nasal clamp and we were able to get the bleeding to stop. I sent him home with the remaining bottle of Afrin in the nasal clamp and instructions for its use if he were to start bleeding again. He was also given information for follow-up with ear nose and throat. He was given return precautions. He expressed understanding and agreement. Discharge Plan Departure Patient Disposition: Home Clinical Impression: Epistaxis Instructions: DI for Nosebleed Activity Restrictions/Additional Instructions: Continue to take all of your medications as directed. Follow the procedure that we discussed if your nose starts to bleed again. Return to the emergency department for new or worsening symptoms. Prescriptions: No Action atorvastatin 40 mg tablet 40 mg PO QPM aspirin [Adult Low Dose Aspirin] 81 mg tablet,delayed release (DR/EC) 81 mg PO DAILY metoprolol succinate 50 mg tablet extended release 24 hr 50 mg PO DAILY Patient Comments: DR CHOE STARTED PT ON THIS MED losartan 25 mg tablet 25 mg PO BID coenzyme Q10 [CoQ-10] 30 mg Capsule 30 mg PO DAILY Rx Instructions: unknown dose acetaminophen 500 mg Tablet 1,000 mg PO DAILY Referrals: Kole Brown MD [Physician] - Miscellaneous,DoctorMD [Primary Care Provider] - Stand Alone Forms: Patient Portal/API
[2022-12-13 08:21] VITALS: BP 132/63; PULSE 50; RESP 18; O2SAT 100
== END 2022-12-13 08:22 | disposition home or self-care (01) ==
PROVIDERS: Emergency Provider Emergency Medicine
DX: R04.0 Epistaxis (principal); Z79.01 Long term (current) use of anticoagulants
CPT/HCPCS: 99282

== ENCOUNTER → 2022-12-25 10:30 | Outpatient (CLI) | payer MEDICARE, SELFPAY ==
[2022-12-25 13:01] LABS: BUN Creatinine Ratio 22.4 (6-22); Blood Urea Nitrogen 24 mg/dL (9-20); Calcium 9.9 mg/dL (8.4-10.2); Carbon Dioxide 20 mmol/L (22-32); Chloride 100 mmol/L (98-107); Estimated Glomerular Filt Rate > 60 mL/min (>60); Glucose 78 mg/dL (80-110); HEMOLYSIS < 15 (0-50); Sodium 132 mmol/L (137-145)
[2022-12-25 13:11] LABS: NT-proBNP (BNP-Adult 18+) 6740 pg/mL (<450)
== END ==
PROVIDERS: Referring Provider Internal Medicine Cardiovascular Disease; Visit Provider Internal Medicine Cardiovascular Disease
DX: I50.22 Chronic systolic (congestive) heart failure (principal)
CPT/HCPCS: 36415; 80048; 83880

== ENCOUNTER → 2023-01-06 11:37 | Outpatient (CLI) | payer MEDICARE, SELFPAY ==
[2023-01-06 12:36] LABS: Alanine Aminotransferase 29 IU/L (<50); Albumin 4.5 g/dL (3.5-5.0); Albumin Globulin Ratio 2.1 (1.0-2.8); Alkaline Phosphatase 78 U/L (38-126); Aspartate Aminotransferase 32 IU/L (17-59); BUN Creatinine Ratio 25.2 (6-22); Bilirubin Total 1.1 mg/dL (0.2-1.3); Blood Urea Nitrogen 26 mg/dL (9-20); Calcium 10.1 mg/dL (8.4-10.2); Carbon Dioxide 21 mmol/L (22-32); Chloride 101 mmol/L (98-107); Estimated Glomerular Filt Rate > 60 mL/min (>60); Globulin 2.1 g/dL (1.7-4.1); Glucose 85 mg/dL (80-110); HEMOLYSIS < 15 (0-50); Potassium 4.9 mmol/L (3.4-5.1); Sodium 133 mmol/L (137-145); Total Protein 6.6 g/dL (6.3-8.2)
== END ==
PROVIDERS: PCP Student in an Organized Health Care Education/Training Program; Referring Provider Internal Medicine Cardiovascular Disease; Visit Provider Internal Medicine Cardiovascular Disease
DX: Z79.899 Other long term (current) drug therapy (principal)
CPT/HCPCS: 36415; 80053; 84443

== ENCOUNTER → 2023-02-28 14:38 | Outpatient (CLI) | payer MEDICARE, SELFPAY ==
[2023-02-28 15:14] LABS: Add Manual Diff / Slide Review NO; Basophils Absolute Auto 0 /uL (0-100); Basophils Percent Auto 0.6 % (0-2); Eosinophils Absolute Auto 100 /uL (0-450); Eosinophils Percent Auto 2.1 % (2-4); Hemoglobin 13.3 g/dL (13.5-17.5); Lymphocytes Absolute Auto 1300 /uL (1100-4500); Lymphocytes Percent Auto 18.8 % (25-40); Mean Corpuscular Hemoglobin 33.5 PG (26-34); Mean Corpuscular Volume 98.4 fL (80-100); Monocytes Absolute Auto 800 /uL (0-900); Monocytes Percent Auto 12.2 % (3-14); Neutrophils Absolute Auto 4500 /uL (1500-7000); Neutrophils Percent Auto 66.3 % (50-75); Platelet Count 235 X10^3/uL (150-400); Red Blood Cell Count 3.96 X10^6/uL (4.5-5.9); Red Cell Distribution Width 15.5 % (11.6-14.8); White Blood Cell Count 6.8 X10^3/uL (4.5-11.0)
[2023-02-28 15:41] LABS: BUN Creatinine Ratio 25.3 (6-22); Blood Urea Nitrogen 23 mg/dL (9-20); Calcium 9.8 mg/dL (8.4-10.2); Carbon Dioxide 22 mmol/L (22-32); Chloride 102 mmol/L (98-107); Estimated Glomerular Filt Rate > 60 mL/min (>60); Glucose 86 mg/dL (80-110); HEMOLYSIS 38 (0-50); Potassium 4.2 mmol/L (3.4-5.1); Sodium 134 mmol/L (137-145)
== END ==
PROVIDERS: Referring Provider Internal Medicine Cardiovascular Disease; Visit Provider Internal Medicine Cardiovascular Disease
DX: I43 Cardiomyopathy in diseases classified elsewhere (principal); R00.0 Tachycardia, unspecified
CPT/HCPCS: 36415; 80048; 85025

== ENCOUNTER → 2023-04-23 10:17 | Outpatient (CLI) | payer MEDICARE, SELFPAY ==
[2023-04-23 11:54] LABS: Add Manual Diff / Slide Review NO; Basophils Absolute Auto 0 /uL (0-100); Basophils Percent Auto 0.5 % (0-2); Eosinophils Absolute Auto 100 /uL (0-450); Eosinophils Percent Auto 1.4 % (2-4); Hematocrit 39.9 % (41-53); Hemoglobin 13.7 g/dL (13.5-17.5); Lymphocytes Absolute Auto 1200 /uL (1100-4500); Mean Corpuscular HGB Conc 34.4 % (30-36); Mean Corpuscular Hemoglobin 34.4 PG (26-34); Mean Corpuscular Volume 99.9 fL (80-100); Monocytes Absolute Auto 700 /uL (0-900); Monocytes Percent Auto 8.6 % (3-14); Neutrophils Absolute Auto 5600 /uL (1500-7000); Neutrophils Percent Auto 73.5 % (50-75); Platelet Count 229 X10^3/uL (150-400); Red Blood Cell Count 3.99 X10^6/uL (4.5-5.9); Red Cell Distribution Width 14.5 % (11.6-14.8); White Blood Cell Count 7.6 X10^3/uL (4.5-11.0)
[2023-04-23 12:08] LABS: BUN Creatinine Ratio 22.2 (6-22); Blood Urea Nitrogen 26 mg/dL (9-20); Calcium 9.8 mg/dL (8.4-10.2); Carbon Dioxide 21 mmol/L (22-32); Chloride 102 mmol/L (98-107); Estimated Glomerular Filt Rate > 60 mL/min (>60); Glucose 97 mg/dL (80-110); HEMOLYSIS < 15 (0-50); Potassium 4.4 mmol/L (3.4-5.1); Sodium 134 mmol/L (137-145)
== END ==
LOC: LAB 10:19
PROVIDERS: Referring Provider Internal Medicine Cardiovascular Disease; Visit Provider Internal Medicine Cardiovascular Disease
DX: I48.3 Typical atrial flutter (principal)
CPT/HCPCS: 36415; 80048; 85025

== ENCOUNTER → 2023-05-30 10:15 | Outpatient (CLI) | payer MEDICARE, SELFPAY ==
--- NOTE | 2023-05-30 10:16 | DI.ECHO.S_ITS ---
[place] +---------+ [facility] +---------+ : : [address] : : : : [id number] : : : : Phone: [phone]---------+ Echocardiogram Report + + :Name: AKHIL HOLLINGSWORTH Study Date: 05/30/2023 Height: 70 in : :[facility] ReadingLocation: Weight: 150 lb : : Gender: Male BSA: 1.8 m2 : :: 1945 Age: 78 yrs BP: 126/67 mmHg: :Reason For Study: HYPERTROPHIC CARDIOMYOPATHY : :Ordering Physician: DARBY, : :VANGIE Shay Performed By: Timmy Delgado : :Referring: VANGIE PASTOR : + + Interpretation Summary The left ventricle is mildly dilated. Left ventricular systolic function is moderately reduced. The ejection fraction is estimated to be 30-35%. There is hypokinesis to akinesis along most LV segments except for lateral, part of anterior, and basal inferior segments. The right ventricle is mild to moderately dilated. There is a pacemaker lead in the right ventricle. Right ventricular systolic function is borderline reduced. The right ventricular systolic pressure is estimated to be at least 48 mmHg based on an estimated right atrial pressure of 8 mm Hg. The left atrium is moderately dilated. The right atrium is moderately dilated. There is moderate mitral regurgitation. There is moderate tricuspid regurgitation. The aortic root is normal size. Procedure: A two-dimensional transthoracic echocardiogram with color flow and Doppler was performed. The study quality was technically adequate. Comparison is made with the echocardiogram of 09/04/2022. The patient was in normal sinus rhythm during the exam. The heart rate ranged between 60-69 bpm during the study. Left Ventricle: The left ventricle is mildly dilated. There is borderline concentric left ventricular hypertrophy. Left ventricular systolic function is moderately reduced. The ejection fraction is estimated to be 30-35%. There is hypokinesis to akinesis along most LV segments except for lateral, part of anterior, and basal inferior segments. Right Ventricle: The right ventricle is mild to moderately dilated. There is a pacemaker lead in the right ventricle. Right ventricular systolic function is borderline reduced. Atria: The left atrium is moderately dilated. The right atrium is moderately dilated. There is a catheter/pacemaker lead seen in the right atrium. Mitral Valve: The mitral valve is normal in structure but abnormal in function. There is no mitral valve stenosis. There is moderate mitral regurgitation. Aortic Valve: The aortic valve is trileaflet. There is no aortic valve stenosis. No aortic regurgitation is present. Tricuspid Valve: The tricuspid valve is normal in structure but is abnormal in function. There is no tricuspid stenosis. The right ventricular systolic pressure is estimated to be at least 48 mmHg based on an estimated right atrial pressure of 8 mm Hg. There is moderate tricuspid regurgitation. Pulmonic Valve: The pulmonic valve is not well visualized. There is no pulmonic valvular stenosis. There is a trace or physiologic amount of pulmonic regurgitation. Great Vessels: The aortic root is normal size. The dimensions of the ascending aorta are normal. The IVC is of normal diameter and collapses less than 50% with a sniff. This suggests a right atrial pressure of 8 mm Hg. Pericardium/ Pleura There is no pericardial effusion. There is no pleural effusion. MMode/2D Measurements & Calculations LVIDd: 6.1 cm LVOT diam: 2.0 cm LVIDs: 5.1 cm Ao root diam: 3.0 cm FS: 15.1 % asc Aorta Diam: 3.5 cm IVSd: 1.2 cm Ao Arch Diam (Prox Trans): 2.5 cm LVPWd: 1.1 cm LV mena. diameter/BSA (cm/m^2): 3.3 LV sys. diameter/BSA (cm/m^2): 2.8 LA A2 area: 19.0 cm2 RA long axis: 4.8 cm LA A4 area: 29.0 cm2 RA area: 20.1 cm2 LA length (vol): 6.4 cm RA vol: 72.2 ml LA vol: 72.9 ml RA : 39.1 ml/m2 LA vol index: 39.5 ml/m2 IVC diam: 1.5 cm RVD1 (basal): 4.6 cm RVD2 (mid): 3.5 cm TAPSE: 2.0 cm Doppler Measurements & Calculations Ao V2 max: 79.0 cm/sec LVOT Max Ruslan: 79.6 cm/sec Ao V2 mean: 59.0 cm/sec LV V1 max P.5 mmHg Ao max P.5 mmHg LV V1 VTI: 17.4 cm Ao mean P.5 mmHg JUSTINA(I,D): 2.8 cm2 Ao V2 VTI: 19.3 cm JUSTINA(V,D): 3.2 cm2 sev ratio: 0.90 JUSTINA indexed to BSA (cm^2/m^2): 1.5 MV E max ruslan: 55.0 cm/sec TR max ruslan: 337.2 cm/sec MV A max ruslan: 44.8 cm/sec TR max P.5 mmHg MV E/A: 1.2 PA V2 max: 77.3 cm/sec Med Peak E' Ruslan: 3.1 cm/sec PA V2 mean: 55.5 cm/sec E/E' med: 17.7 PA mean P.4 mmHg Lat Peak E' Ruslan: 2.7 cm/sec PA pr(Accel): 25.9 mmHg E/E' lat: 20.6 E/e' average: 19.2 MV dec time: 0.28 sec MR ERO: 0.40 cm2 MR PISA: 6.4 cm2 SV(LVOT): 55.0 ml MR flow rate: 234.4 cm3/sec MR PISA radius: 1.0 cm Reading Physician:10:23 PM
== END ==
PROVIDERS: Referring Provider Physician Assistant; Visit Provider Physician Assistant
DX: I42.2 Other hypertrophic cardiomyopathy (principal); I08.1 Rheumatic disorders of both mitral and tricuspid valves; Z95.0 Presence of cardiac pacemaker
CPT/HCPCS: 93306

== ENCOUNTER → 2023-07-03 11:05 | Outpatient (CLI) | payer MEDICARE, SELFPAY ==
[2023-07-03 12:41] LABS: Alanine Aminotransferase 15 IU/L (<50); Albumin 4.3 g/dL (3.5-5.0); Albumin Globulin Ratio 1.7 (1.0-2.8); Alkaline Phosphatase 79 U/L (38-126); Aspartate Aminotransferase 25 IU/L (17-59); Blood Urea Nitrogen 24 mg/dL (9-20); Calcium 9.7 mg/dL (8.4-10.2); Carbon Dioxide 20 mmol/L (22-32); Chloride 107 mmol/L (98-107); Estimated Glomerular Filt Rate > 60 mL/min (>60); Globulin 2.6 g/dL (1.7-4.1); Glucose 91 mg/dL (80-110); HEMOLYSIS < 15 (0-50); Potassium 4.2 mmol/L (3.4-5.1); Sodium 137 mmol/L (137-145); Total Protein 6.9 g/dL (6.3-8.2)
== END ==
PROVIDERS: Referring Provider Internal Medicine Cardiovascular Disease; Visit Provider Internal Medicine Cardiovascular Disease
DX: Z79.899 Other long term (current) drug therapy (principal)
CPT/HCPCS: 36415; 80053; 84443

== ENCOUNTER → 2023-07-18 09:10 | Outpatient (CLI) | payer MEDICARE, SELFPAY ==
[2023-07-18 11:04] LABS: BUN Creatinine Ratio 21.3 (6-22); Blood Urea Nitrogen 26 mg/dL (9-20); Calcium 9.9 mg/dL (8.4-10.2); Carbon Dioxide 20 mmol/L (22-32); Chloride 106 mmol/L (98-107); Cholesterol 163 mg/dL (140-199); Estimated Glomerular Filt Rate 60 mL/min (>60); Glucose 100 mg/dL (80-110); HDL Cholesterol 76 mg/dL (40-60); HEMOLYSIS 16 (0-50); LDL Cholesterol Calculated 75 mg/dL (<100); Potassium 5.2 mmol/L (3.4-5.1); Sodium 135 mmol/L (137-145); Triglycerides 58 mg/dL (35-150)
== END ==
PROVIDERS: Referring Provider Internal Medicine Cardiovascular Disease; Visit Provider Internal Medicine Cardiovascular Disease
DX: I50.22 Chronic systolic (congestive) heart failure (principal); E78.5 Hyperlipidemia, unspecified
CPT/HCPCS: 36415; 80048; 80061

== ENCOUNTER → 2023-08-06 10:13 | Outpatient (CLI) | payer MEDICARE, SELFPAY ==
[2023-08-06 10:55] LABS: BUN Creatinine Ratio 20.2 (6-22); Blood Urea Nitrogen 21 mg/dL (9-20); Calcium 9.7 mg/dL (8.4-10.2); Carbon Dioxide 19 mmol/L (22-32); Chloride 104 mmol/L (98-107); Estimated Glomerular Filt Rate > 60 mL/min (>60); Glucose 92 mg/dL (80-110); HEMOLYSIS < 15 (0-50); Potassium 4.8 mmol/L (3.4-5.1); Sodium 132 mmol/L (137-145)
== END ==
PROVIDERS: Referring Provider Internal Medicine Cardiovascular Disease; Visit Provider Internal Medicine Cardiovascular Disease
DX: I50.22 Chronic systolic (congestive) heart failure (principal)
CPT/HCPCS: 36415; 80048

== ENCOUNTER → 2023-11-07 10:47 | Outpatient (CLI) | payer MEDICARE, SELFPAY ==
[2023-11-07 12:27] LABS: BUN Creatinine Ratio 19.4 (6-22); Blood Urea Nitrogen 20 mg/dL (9-20); Calcium 9.4 mg/dL (8.4-10.2); Carbon Dioxide 16 mmol/L (22-32); Chloride 104 mmol/L (98-107); Estimated Glomerular Filt Rate > 60 mL/min (>60); Glucose 90 mg/dL (80-110); HEMOLYSIS < 15 (0-50); Potassium 4.6 mmol/L (3.4-5.1); Sodium 133 mmol/L (137-145)
== END ==
PROVIDERS: Referring Provider Internal Medicine Cardiovascular Disease; Visit Provider Internal Medicine Cardiovascular Disease
DX: I50.22 Chronic systolic (congestive) heart failure (principal)
CPT/HCPCS: 36415; 80048

== ENCOUNTER → 2023-12-24 10:27 | Outpatient (CLI) | payer MEDICARE, SELFPAY ==
--- NOTE | 2023-12-24 10:28 | DI.US.S_ITS ---
PROCEDURE: US CAROTID DOPPLER BI INDICATIONS: BI CAROTID ARTERY STENOSIS TECHNIQUE: Color and pulse Doppler interrogation was performed of both carotid systems, with image documentation and velocity measurements. COMPARISON: [facility], [place], US CAROTID DOPPLER BI, 03/19/2018, 12:05. FINDINGS: Stenosis calculations are based on SRU (Society of Radiologists in Ultrasound) criteria. Right side: Brachial blood pressure: 115/63 mm Hg. Common carotid artery peak systolic velocity: 82 cm/sec. Internal carotid artery peak systolic velocity: 91 cm/sec. Internal carotid artery end diastolic velocity: 23 cm/sec. External carotid artery peak systolic velocity: 113 cm/sec. ICA/CCA peak systolic ratio: 1.1 . Paul scale imaging description: Mild atherosclerotic plaques Percent internal carotid artery stenosis: Less than 50 percent . Vertebral artery: Flow direction is antegrade. Left side: Brachial blood pressure: 109/56 mm Hg. Common carotid artery peak systolic velocity: 88 cm/sec. Internal carotid artery peak systolic velocity: 149 cm/sec. Internal carotid artery end diastolic velocity: 33 cm/sec. External carotid artery peak systolic velocity: 144 cm/sec. ICA/CCA peak systolic ratio: 1.7 . Paul scale imaging description: Significant atherosclerotic plaques Percent internal carotid artery stenosis: 50-69 percent . Vertebral artery: Flow direction is antegrade. IMPRESSION: Less than 50 percent stenosis of the right internal carotid artery and 50-69 percent stenosis of the left internal carotid artery. Dictated by: Emanuel Vasques M.D. on 12/24/2023 at 15:04 Approved by: Emanuel Vasques M.D. on 12/24/2023 at 15:08
== END ==
PROVIDERS: Referring Provider Internal Medicine Cardiovascular Disease; Visit Provider Internal Medicine Cardiovascular Disease
DX: I65.23 Occlusion and stenosis of bilateral carotid arteries (principal)
CPT/HCPCS: 93880

== ENCOUNTER → 2024-03-17 08:19 | Outpatient (CLI) | payer MEDICARE, SELFPAY ==
[2024-03-17 11:12] LABS: BUN Creatinine Ratio 25.2 (6-22); Blood Urea Nitrogen 28 mg/dL (9-20); Calcium 9.7 mg/dL (8.4-10.2); Carbon Dioxide 19 mmol/L (22-32); Chloride 104 mmol/L (98-107); Cholesterol 158 mg/dL (140-199); Estimated Glomerular Filt Rate > 60 mL/min (>60); Glucose 83 mg/dL (80-110); HDL Cholesterol 58 mg/dL (40-60); HEMOLYSIS 26 (0-50); LDL Cholesterol Calculated 79 mg/dL (<100); Potassium 4.7 mmol/L (3.4-5.1); Sodium 134 mmol/L (137-145); Triglycerides 103 mg/dL (35-150)
== END ==
PROVIDERS: Referring Provider Internal Medicine Cardiovascular Disease; Visit Provider Internal Medicine Cardiovascular Disease
DX: I10 Essential (primary) hypertension (principal)
CPT/HCPCS: 36415; 80048; 80061

== ENCOUNTER → 2024-04-02 13:28 | Outpatient (CLI) | payer MEDICARE, SELFPAY ==
[2024-04-02 14:27] LABS: Blood Urea Nitrogen 26 mg/dL (9-20); Calcium 9.9 mg/dL (8.4-10.2); Carbon Dioxide 19 mmol/L (22-32); Chloride 98 mmol/L (98-107); Estimated Glomerular Filt Rate 58 mL/min (>60); Glucose 89 mg/dL (80-110); HEMOLYSIS < 15 (0-50); Potassium 5.1 mmol/L (3.4-5.1); Sodium 130 mmol/L (137-145)
== END ==
PROVIDERS: Referring Provider Internal Medicine Cardiovascular Disease; Visit Provider Internal Medicine Cardiovascular Disease
DX: I50.22 Chronic systolic (congestive) heart failure (principal)
CPT/HCPCS: 36415; 80048

== ENCOUNTER → 2024-04-20 12:47 | Outpatient (CLI) | payer MEDICARE, SELFPAY ==
[2024-04-20 15:05] LABS: BUN Creatinine Ratio 15.7 (6-22); Blood Urea Nitrogen 16 mg/dL (9-20); Calcium 9.3 mg/dL (8.4-10.2); Carbon Dioxide 19 mmol/L (22-32); Chloride 99 mmol/L (98-107); Estimated Glomerular Filt Rate > 60 mL/min (>60); Glucose 83 mg/dL (80-110); HEMOLYSIS < 15 (0-50); Potassium 4.2 mmol/L (3.4-5.1); Sodium 131 mmol/L (137-145)
== END ==
PROVIDERS: Referring Provider Internal Medicine Cardiovascular Disease; Visit Provider Internal Medicine Cardiovascular Disease
DX: I10 Essential (primary) hypertension (principal)
CPT/HCPCS: 36415; 80048

== ENCOUNTER → 2024-09-15 14:37 | Outpatient (CLI) | payer MEDICARE, SELFPAY ==
--- NOTE | 2024-09-15 14:54 | DI.ECHO.S_ITS ---
[place] +---------+ [facility] : : [address] : : [address] : : [id number] : : Phone: [phone] Echocardiogram Report + + :Name: AKHIL HOLLINGSWORTH Study Date: 09/15/2024 Height: 70 in : :[facility] ReadingLocation: Weight: 157 lb : : Gender: Male BSA: 1.9 m2 : :: 1945 Age: 79 yrs BP: 128/72 mmHg: :Reason For Study: Cardiomyopathy : :Ordering Physician: DAIJA, : :SHRUTHI Performed By: Anson Mascorro : :Referring: SHRUTHI CHOE : + + Interpretation Summary The left ventricle is normal in size. Severely hypokinetic septum and distal inferior wall. There is improvement in distal lateral wall, anterior wall, wall motion abnormalities. Overall LVEF 40 to 45%. Previously 30 to 35%. The right ventricle is mildly dilated. The right ventricular systolic function is normal. Pacemaker lead in the RV. There is mild mitral regurgitation. Compared to the prior echo study, there has been a decrease in the severity of mitral regurgitation. There is mild tricuspid regurgitation. Compared to the prior echo exam, there has been a decrease in TR severity. The right ventricular systolic pressure is estimated to be at least 24 mmHg based on an estimated right atrial pressure of 3 mm Hg. Previously 48 mmHg. Previously moderate MR and moderate TR. Procedure: A two-dimensional transthoracic echocardiogram with color flow and Doppler was performed. The study quality was technically adequate. Comparison is made with the echocardiogram of 05/30/2023. A contrast injection of Definity was performed to improve assessment of LV function. The heart rate ranged between 64-74 bpm during the study. The patient was in normal sinus rhythm during the exam. Left Ventricle: The left ventricle is normal in size. Left ventricular wall thickness is mildly increased. There is no thrombus. The ejection fraction is estimated to be 40-45%. Severely hypokinetic septum and distal inferior wall. There is improvement in distal lateral wall, anterior wall, wall motion abnormalities. Overall LVEF 40 to 45%. Previously 30 to 35%. MV E/A: 0.59 Med Peak E' Ruslan: 3.3 cm/sec E/E' med: 13.7. Right Ventricle: The right ventricle is mildly dilated. There is a pacemaker lead in the right ventricle. The right ventricular systolic function is normal. Atria: The left atrium is severely dilated. There has been no significant change since the previous study. Right atrium not well visualized. Doppler interrogation and injection of saline echo contrast shows no evidence for an interatrial shunt. Mitral Valve: The mitral valve leaflets appear to open well. There is mild mitral annular calcification. There is no mitral valve stenosis. There is mild mitral regurgitation. Compared to the prior echo study, there has been a decrease in the severity of mitral regurgitation. Aortic Valve: The aortic valve is trileaflet. The aortic valve opens well. There is no aortic valve stenosis. No aortic regurgitation is present. Tricuspid Valve: The tricuspid valve is not well visualized. There is mild tricuspid regurgitation. The right ventricular systolic pressure is estimated to be at least 24 mmHg based on an estimated right atrial pressure of 3 mm Hg. Compared to the prior echo exam, there has been a decrease in TR severity. Pulmonic Valve: The pulmonic valve is not well visualized. There is mild pulmonic regurgitation. Great Vessels: The aortic root is normal size. The ascending aorta is normal in size. The aortic arch could not be visualized. The IVC is of normal diameter and collapses greater than 50% with a sniff. This suggests a low right atrial pressure of 3 mm Hg. Pericardium/ Pleura There is no pericardial effusion. MMode/2D Measurements & Calculations LVIDd: 5.2 cm LVOT diam: 2.1 cm LVIDs: 4.1 cm Ao root diam: 3.1 cm FS: 20.5 % asc Aorta Diam: 3.2 cm EPSS: 0.68 cm IVSd: 1.1 cm LVPWd: 1.1 cm LV mena. diameter/BSA (cm/m^2): 2.8 LV sys. diameter/BSA (cm/m^2): 2.2 LA A2 area: 27.3 cm2 IVC diam: 0.76 cm LA A4 area: 28.5 cm2 LA length (vol): 6.3 cm LA vol: 105.6 ml LA vol index: 56.1 ml/m2 TAPSE: 1.8 cm Doppler Measurements & Calculations Ao V2 max: 111.6 cm/sec LVOT Max Ruslan: 89.0 cm/sec Ao V2 mean: 71.0 cm/sec LV V1 max P.2 mmHg Ao max P.0 mmHg LV V1 VTI: 18.1 cm Ao mean P.4 mmHg JUSTINA(I,D): 3.0 cm2 Ao V2 VTI: 20.5 cm JUSTINA(V,D): 2.7 cm2 sev ratio: 0.89 JUSTINA indexed to BSA (cm^2/m^2): 1.6 MV E max ruslan: 45.7 cm/sec TR max ruslan: 253.4 cm/sec MV A max ruslan: 77.4 cm/sec TR max P.9 mmHg MV E/A: 0.59 PA V2 max: 81.8 cm/sec Med Peak E' Ruslan: 3.3 cm/sec PA V2 mean: 57.1 cm/sec E/E' med: 13.7 PA mean P.5 mmHg Lat Peak E' Ruslan: 3.2 cm/sec PA pr(Accel): 45.6 mmHg E/E' lat: 14.3 E/e' average: 14.0 MV dec time: 0.17 sec SV(LVOT): 62.0 ml Reading Physician:04:52 PM
== END ==
LOC: ECHO 14:38
PROVIDERS: Referring Provider Internal Medicine Cardiovascular Disease; Visit Provider Internal Medicine Cardiovascular Disease
DX: I08.1 Rheumatic disorders of both mitral and tricuspid valves (principal); I50.22 Chronic systolic (congestive) heart failure; I42.2 Other hypertrophic cardiomyopathy
CPT/HCPCS: 93306; Q9957

== ENCOUNTER → 2024-09-29 08:45 | Outpatient (CLI) | payer MEDICARE, SELFPAY ==
[2024-09-29 10:35] LABS: Alanine Aminotransferase 20 IU/L (<50); Albumin 4.9 g/dL (3.5-5.0); Albumin Globulin Ratio 2.7 (1.0-2.8); Alkaline Phosphatase 83 U/L (38-126); Blood Urea Nitrogen 19 mg/dL (9-20); Calcium 9.5 mg/dL (8.4-10.2); Carbon Dioxide 20 mmol/L (22-32); Chloride 95 mmol/L (98-107); Cholesterol 130 mg/dL (140-199); Estimated Glomerular Filt Rate > 60 mL/min (>60); Globulin 1.8 g/dL (1.7-4.1); Glucose 92 mg/dL (70-99); HDL Cholesterol 69 mg/dL (40-60); HEMOLYSIS < 15 (0-50); Potassium 5.0 mmol/L (3.4-5.1); Sodium 128 mmol/L (137-145); Total Protein 6.7 g/dL (6.3-8.2); Triglycerides 80 mg/dL (35-150)
== END ==
PROVIDERS: Referring Provider Internal Medicine Cardiovascular Disease; Visit Provider Internal Medicine Cardiovascular Disease
DX: E78.5 Hyperlipidemia, unspecified (principal)
CPT/HCPCS: 36415; 80053; 80061

== ENCOUNTER → 2024-10-19 09:41 | Outpatient (CLI) | payer MEDICARE, SELFPAY ==
[2024-10-19 10:45] LABS: Blood Urea Nitrogen 16 mg/dL (9-20); Calcium 9.9 mg/dL (8.4-10.2); Carbon Dioxide 22 mmol/L (22-32); Chloride 99 mmol/L (98-107); Estimated Glomerular Filt Rate > 60 mL/min (>60); Glucose 94 mg/dL (70-99); HEMOLYSIS < 15 (0-50); Potassium 5.1 mmol/L (3.4-5.1); Sodium 132 mmol/L (137-145)
[2024-10-20 14:08] LABS: Osmolality, Serum 281 mOsmol/kg (280-301)
== END ==
PROVIDERS: Referring Provider Internal Medicine Cardiovascular Disease; Visit Provider Internal Medicine Cardiovascular Disease
DX: E87.1 Hypo-osmolality and hyponatremia (principal)
CPT/HCPCS: 36415; 80048; 83930; 83935

== ENCOUNTER → 2025-01-03 09:49 | Outpatient (CLI) | payer MEDICARE, SELFPAY ==
--- NOTE | 2025-01-03 09:52 | DI.US.S_ITS ---
PROCEDURE: US CAROTID DOPPLER BI INDICATIONS: bilateral carotid artery stenosis TECHNIQUE: Color and pulse Doppler interrogation was performed of both carotid systems, with image documentation and velocity measurements. COMPARISON: [facility], [place], US CAROTID DOPPLER BI, 12/24/2023, 11:10. FINDINGS: Stenosis calculations are based on SRU ([employer] in Ul[employer]) criteria. Right side: Common carotid artery peak systolic velocity: 61 cm/sec. Internal carotid artery peak systolic velocity: 90 cm/sec. Internal carotid artery end diastolic velocity: 27 cm/sec. External carotid artery peak systolic velocity: 78 cm/sec. ICA/CCA peak systolic ratio: 1.5 . Paul scale imaging description: Atherosclerotic plaques Percent internal carotid artery stenosis: Less than 50% . Vertebral artery: Flow direction is antegrade. Left side: Common carotid artery peak systolic velocity: 56 cm/sec. Internal carotid artery peak systolic velocity: 158 cm/sec. Internal carotid artery end diastolic velocity: 11 cm/sec. External carotid artery peak systolic velocity: 88 cm/sec. ICA/CCA peak systolic ratio: 2.8 . Paul scale imaging description: Atherosclerotic plaques Percent internal carotid artery stenosis: 50-69% . Vertebral artery: Flow direction is antegrade. IMPRESSION: 1. In the right carotid artery, there is less than 50% stenosis based on peak systolic velocity criteria. 2. In the left carotid artery, there is 50-69% stenosis based on peak systolic velocity criteria. Based on grayscale imaging, there appears to be a focal area of high- grade stenosis/near occlusion. Consider CT angiography for further evaluation. 3. Antegrade vertebral arteries. Dictated by: Emanuel Vasques M.D. on 01/03/2025 at 15:53 Approved by: Emanuel Vasques M.D. on 01/03/2025 at 16:10
== END ==
PROVIDERS: PCP Internal Medicine Cardiovascular Disease; Referring Provider Internal Medicine Cardiovascular Disease; Visit Provider Internal Medicine Cardiovascular Disease
DX: I65.23 Occlusion and stenosis of bilateral carotid arteries (principal)
CPT/HCPCS: 93880